=== PATIENT | female | born 1945 | race Caucasian/White ===

== ENCOUNTER 2018-03-04 19:22 | Emergency (ER) | payer MEDICARE, BC ==
[~2018-03-04] VITALS: Ht 162.6 cm; Wt 53.2 kg
[2018-03-04 19:25] VITALS: TEMP 98
[2018-03-04] MEDS ORDERED: ATIVAN 0.50.5 MG/TAB PO (19:41)
[2018-03-04] MEDS ORDERED: ZOLOFT 50MG50 MG PO (19:41)
[2018-03-04] MEDS ORDERED: CRESTOR 10MG10 MG PO (19:41)
[2018-03-04] MEDS ORDERED: CENTRUM SILVER CHEW (19:42)
[2018-03-04] MEDS ORDERED: SYNTHROID0.088 MG/T PO (19:42)
[2018-03-04] MEDS ORDERED: CLARITIN 1010 MG/TAB PO (19:43)
[2018-03-04] MEDS ORDERED: TYLENOL 500MG500 MG PO (19:43)
[2018-03-04] MEDS ORDERED: CALCIUM 600-D 61 TAB PO (19:43)
[2018-03-04 19:57] LABS: BASO # 0.1 (0.0-0.2); BASO % 1.2 % (0.0-2.0); EOS # 0.1 (0.0-0.7); EOS % 2.1 % (0-4.0); GRAN # 2.1 (1.4-6.5); GRAN % 36.6 % (42.2-75.2); LYMPH # 3.1 (1.2-3.4); LYMPH % 53.1 % (20.0-51.0); MEAN CELL VOLUME 94 fl (80.0-100.0); MEAN CORPUSCULAR HEMOGLOBIN 32 pg (27.0-31.0); MEAN CORPUSCULAR HGB CONC 34 g/dl (33.0-37.0); MEAN PLATELET VOLUME 9.8 fl (7.4-10.4); MONO # 0.4 (0.1-0.6); MONO % 6.8 % (1.7-9.3); PLATELET COUNT 236 K/mm3 (130-400); RED BLOOD COUNT 3.76 M/mm3 (4.10-5.30); REDCELL DISTRIBUTION WIDTH-CV 12.4 % (11.5-14.5)
[2018-03-04 20:00] LABS: HEMATOCRIT 35.4 % (37.0-47.0)
[2018-03-04 20:04] LABS: ALBUMIN 3.9 gm/dL (3.5-5.0); BILIRUBIN,TOTAL 0.3 mg/dL (0.0-1.0); CALCIUM 9.5 mg/dL (8.4-10.2); CREATININE, serum 0.74 mg/dL (0.52-1.25); TOTAL PROTEIN 7.3 gm/dL (6.4-8.2)
[2018-03-04 20:16] LABS: TROPONIN-I 0.015 ng/mL (0.000-0.034)
[2018-03-05 01:55] VITALS: BP 125/74; PULSE 68
== END 2018-03-05 01:30 | disposition short-term general hospital (02) ==
LOC: COL.ER 19:22 → ICU 23:07 → COL.ER 23:07
PROVIDERS: Emergency Medicine
DX: I21.4 Non-ST elevation (NSTEMI) myocardial infarction (principal); M54.2 Cervicalgia; E78.5 Hyperlipidemia, unspecified; M54.6 Pain in thoracic spine
CPT/HCPCS: J1200; J1644; J2060; J2930; J7030; Q9967